=== PATIENT | male | born 1980 | race Caucasian/White ===

== ENCOUNTER → 2022-05-29 | Outpatient (CLI) | payer OTHER | LOC: COL.RAD 06:48 | DX: M94.252 Chondromalacia, left hip (principal) | CPT/HCPCS: A9575; J3301; Q9967 ==

== ENCOUNTER → 2024-01-27 | Outpatient (CLI) | payer OTHER ==
[~2024-01-27] MED LIST: Iohexol 300 - 10 ML VIAL IV ONE; Triamcinolone 40 MG/ML 1 ML VIAL IJ ONE
== END ==
LOC: COL.RAD 12:15
DX: M25.552 Pain in left hip (principal)
CPT/HCPCS: J0665; J3301; Q9967